=== PATIENT | male | born 1950 | race Caucasian/White ===

== ENCOUNTER 2019-07-01 15:11 | Emergency (ER) | payer OTHER, MEDICARE ==
[~2019-07-01] VITALS: Ht 188 cm; Wt 86.2 kg
[~2019-07-01 15:11] MED LIST: B12 SUBLING; BYSTOLIC10 MG PO; CARTIA XT PO; CLONAZEPAM 1 MG1 M1 PO; COQ-10100 MG PO; COUMADIN6 MG PO; IBUPROFEN PO; LISINOPRIL20 MG PO; MAGNESIUM250 M1 PO; OMEPRAZOLE 20 M20 MG PO; PERCOCET 5-3251 EACH PO; POTASSIUM; SIMVASTATIN20 MG PO; TIKOSYN.5 PO; VITAMIN D-32000 UNIT PO; WARFARIN PO
[2019-07-01 15:46] LABS: ABSOLUTE NEUTROPHILS 4.9 thou/uL (1.4-8.2); BASOPHILS 0.9 % (0.0-2.0); EOSINOPHILS 1.5 % (0.0-3.0); LYMPHOCYTES 15.2 % (24.0-44.0); PLATELET COUNT 138 thou/uL (150-400); POLYS 75.4 % (36.0-66.0); RBC 4.54 mil/uL (4.50-6.00); RDW 13.3 % (10.5-14.5); WBC 6.4 thou/uL (4.0-11.0)
[2019-07-01 15:52] LABS: CALCIUM 9.1 mg/dL (8.5-10.1); CREATININE 1.5 mg/dL (0.7-1.3); POTASSIUM 4.6 mmol/L (3.5-5.1)
[2019-07-01 15:59] LABS: ALBUMIN 3.8 g/dL (3.4-5.0); TOTAL BILIRUBIN 0.8 mg/dL (<0.1-1.0); TOTAL PROTEIN 7.2 g/dL (6.4-8.2)
[2019-07-01 16:03] LABS: APTT 36.7 Seconds (24.5-32.8); INR 2.4; PROTIME 24.5 Seconds (9.3-11.4)
[2019-07-01 17:09] VITALS: BP 112/68
== END 2019-07-01 17:10 | disposition home or self-care (01) ==
LOC: ER 15:11
PROVIDERS: Physician Assistant
DX: S00.83XA Contusion of other part of head, initial encounter (principal); S00.12XA Contusion of left eyelid and periocular area, initial encounter; S80.212A Abrasion, left knee, initial encounter; S80.211A Abrasion, right knee, initial encounter; I48.91 Unspecified atrial fibrillation; I10 Essential (primary) hypertension; Z79.899 Other long term (current) drug therapy; Z88.8 Allergy status to other drugs, medicaments and biological substances; Z88.2 Allergy status to sulfonamides; W18.39XA Other fall on same level, initial encounter; Y93.89 Activity, other specified; Y92.89 Other specified places as the place of occurrence of the external cause; Y99.8 Other external cause status